=== PATIENT | female | born 1965 | race Caucasian/White ===

== ENCOUNTER 2020-05-11 15:27 | Observation (INO) | payer OTHER ==
[~2020-05-11] VITALS: Ht 154.9 cm; Wt 90.9 kg
--- NOTE | ~2020-05-11 | OP ---
PATIENT NAME: ELMER KAMINSKI MEDICAL RECORD: [id number] :69 LOCATION:[facility] ADMISSION DATE:05/11/20 SURGEON: RIAN LINDSAY MD DATE OF OPERATION: 05/12/2020 PREOPERATIVE DIAGNOSES: 1. Symptomatic gallstones. 2. Fatty liver disease. POSTOPERATIVE DIAGNOSES: 1. Symptomatic gallstones. 2. Fatty liver disease with hepatomegaly. PROCEDURE: 1. Laparoscopic cholecystectomy. 2. Intraoperative cholangiography without immediate surgeon interpretation. 3. A 14-gauge core needle liver biopsy. SURGEON: Rian Lindsay MD INSTRUCTIONAL SUPPORT TECHNICIAN: Danial Lassiter formerly [facility]. BLOOD LOSS: 30 cc. ANESTHESIA: General. COMPLICATIONS: None. The risks, possible complications and alternatives to the procedure were explained to the patient. She elects to proceed. The discussion specifically included, but was not limited to, bleeding requiring emergency reoperation, infection, intestinal injury, common bile duct injury. OPERATIVE COURSE: The patient was conveyed to the operating room electively on 05/12/2020. General anesthesia was induced by the anesthesia staff. The abdomen was sterilely prepped and draped. A transverse incision was accomplished inferior to the umbilicus. Sharp dissection was carried down to the level of the anterior fascia. Stay sutures of 0 Vicryl were placed on either side of the midline. The midline fascia was then incised. The peritoneal cavity was entered bluntly. A Clive trocar was introduced. CO2 insufflation was begun. Once a sufficient pneumoperitoneum had been achieved, 3 more trocars were inserted. They were inserted in the upper abdomen. An abdominal survey was undertaken. Under laparoscopic guidance, I percutaneously accessed the right upper quadrant utilizing a 14-gauge core biopsy device. Cores were obtained of the liver due to fatty liver disease as well as hepatomegaly. Utilizing a core biopsy device, several cores were obtained and the biopsy site was made hemostatic with electrocautery. The gallbladder was small. It was full of stones. It did not appear acutely inflamed. It was grasped and retracted inferiorly. I advanced the cholangiogram trocar, punctured the fundus of the gallbladder, aspirated bile and then injected dye. Under real time fluoroscopy, static images were obtained OPERATIVE REPORT [id number] ELMER KAMINSKI of the biliary tract. I then aspirated bile and removed the cholangiogram trocar. The gallbladder was retracted cephalad. The infundibulum was grasped and retracted laterally. Blunt dissection was begun on the triangle of [place]. There were 2 cystic arteries, one anterior and one posterior. These were clipped multiply and divided between clips. I then dissected out the cystic duct. It was clipped multiply and divided between clips. The gallbladder was then excised from its bed in the liver. It was placed within a bag retrieval device and was withdrawn through the infraumbilical incision. A 12-mm trocar was replaced and the abdomen reinsufflated. I irrigated and aspirated in the right upper quadrant. There was no bleeding even at low pressure of 8. All the trocars were removed and the abdomen desufflated. The fascia inferior to the umbilicus was closed with interrupted horizontal mattress 0 Vicryl sutures. The skin at the umbilicus was closed with a running 4-0 Vicryl suture. The other skin incisions were closed with interrupted intracuticular 3-0 and 4-0 Vicryls. Benzoin and Steri-Strips were applied. The patient was then extubated and conveyed to post-anesthesia care unit where she was in stable condition. We were unable to find any family members. The patient can be dismissed home on [address]. I will see her in the office in 2-3 weeks. TRANSINT:[id number] Voice Confirmation ID: [id number] DOCUMENT ID: [id number] RIAN LINDSAY MD CC: MARI CHAU MD [id number] DICTATION DATE: 05/12/20 1242 BILL ADJUSTER: 05/12/20 1351 ADM IN [facility] [address] [place] [address]
[2020-05-11] MEDS ORDERED: ALBUTEROL SULF8.5 GM (15:35)
[2020-05-11 15:56] LABS: BASOPHILS 0.2 % (0-2); EOSINOPHILS 1.3 % (0-7); HEMATOCRIT 43.4 % (36.0-48.0); HEMOGLOBIN 14.4 g/dL (12-16); IMMATURE GRANULOCYTES 0.2 % (0-5); LYMPHOCYTES 22.2 % (15-50); MCH 28.9 pg (26.0-34.0); MCHC 33.2 g/dL (31.0-37.0); MCV 87.1 fL (80.0-100.0); MEAN PLATELET VOLUME 9.3 fL (7.4-10.4); MONOCYTES 7.5 % (2-11); NEUTROPHILS 68.6 % (40-80); PLATELET COUNT 371 10x3/uL (130-400); RBC 4.98 10x6/uL (4.00-5.40); WBC 15.5 10x3/uL (4.8-10.8)
[2020-05-11 16:00] VITALS: BP 118/93
[2020-05-11 16:08] LABS: CALC OSMOLALITY 277 mosm/kg (275-300); CALCIUM 10.7 mg/dL (8.5-10.1); CARBON DIOXIDE 27.5 mmol/L (21.0-32.0); CHLORIDE - SERUM 97 mmol/L (98-107); CREATININE - SERUM 1.1 mg/dL (0.6-1.3); GLUCOSE 123 mg/dL (74-106); POTASSIUM - SERUM 4.3 mmol/L (3.5-5.1); SODIUM 137 mmol/L (136-145); UREA NITROGEN 21 mg/dL (7-18); eGFR NON AFRICAN AMERICAN 55 mL/min (90-120)
[2020-05-11 16:16] LABS: BILIRUBIN NEGATIVE (NEGATIVE); KETONE NEGATIVE (NEGATIVE); NITRITE NEGATIVE (NEGATIVE); UROBILINOGEN NORMAL (NORMAL)
[2020-05-11 16:19] LABS: ALBUMIN 4.7 g/dL (3.4-5.0); ALKALINE PHOSPHATASE 97 U/L (30-120); ALT (SGPT) 41 U/L (10-68); AMYLASE - SERUM 36 U/L (25-115); BILIRUBIN - TOTAL 0.59 mg/dL (0.2-1.3); LIPASE 99 U/L (73-393)
[2020-05-11 16:33] LABS: TROPONIN-I < 0.017 ng/mL (0.000-0.060)
[2020-05-11 17:25] VITALS: BP 147/75
[2020-05-11 18:00] VITALS: BP 135/67
--- NOTE | 2020-05-11 18:00 | NUR ---
COVID-19 SWAB COLLECTED FOR ADMISSION AND SENT TO THE LAB.
[2020-05-11 20:00] VITALS: BP 147/71
[2020-05-11 21:25] VITALS: BP 147/71; Ht 154.9 cm; Wt 90.9 kg
[2020-05-12] VITALS: BP 91/45
[2020-05-12 04:00] VITALS: BP 120/69
[2020-05-12 05:17] LABS: BASOPHILS 0.2 % (0-2); EOSINOPHILS 2.9 % (0-7); HEMATOCRIT 37.1 % (36.0-48.0); IMMATURE GRANULOCYTES 0.1 % (0-5); LYMPHOCYTES 27.5 % (15-50); MCH 28.6 pg (26.0-34.0); MCHC 32.3 g/dL (31.0-37.0); MCV 88.3 fL (80.0-100.0); MEAN PLATELET VOLUME 9.2 fL (7.4-10.4); MONOCYTES 9.3 % (2-11); RDW 13.3 % (11.5-14.5)
[2020-05-12 05:20] LABS: INR 1.02 (0.85-1.17); PROTIME 13.3 SECONDS (11.6-15.0)
[2020-05-12 05:21] LABS: APTT 27.4 SECONDS (22.8-39.4)
[2020-05-12 05:23] LABS: PLATELET COUNT 282 10x3/uL (130-400); WBC 9.2 10x3/uL (4.8-10.8)
[2020-05-12 05:51] LABS: CALCIUM 8.2 mg/dL (8.5-10.1); CARBON DIOXIDE 28.9 mmol/L (21.0-32.0); CHOL - HDL RATIO 3.7 ratio (2.3-4.1); LDL-HDL RATIO 2.3 ratio (1.5-3.5); MAGNESIUM - SERUM 1.9 mg/dL (1.8-2.4); PHOSPHOROUS 3.7 mg/dL (2.5-4.9); POTASSIUM - SERUM 3.9 mmol/L (3.5-5.1); THYROID STIMULATING HORMONE 4.49 uIU/mL (0.36-3.74)
--- NOTE | 2020-05-12 06:55 | NUR ---
A&O RESTING IN BED WITH EYES OPEN. NO C/O PAIN. NO S/S OF ACUTE DISTRESS NOTED. SCHEDULED FOR A LAP RICARDO TODAY. IV TO RIGHT AC, NS INFUSING @ 75ML/HR. SITE PATENT WITHOUT REDNESS OR SWELLING. SPOUSE AT BEDSIDE. DENIES ANY NEEDS AT THIS TIME. CALL LIGHT IN REACH. WILL CONTINUE TO MONITOR.
[2020-05-12 09:18] VITALS: BP 109/63
--- NOTE | 2020-05-12 12:40 | NUR ---
I have reviewed this patient and I concur with the Shift Assessment completed by the Licensed Practical Nurse today this shift.
[2020-05-12 14:13] VITALS: BP 130/81
[2020-05-12] MEDS ORDERED: HYDROCODON-ACE1 EAC7 PO (15:25)
[2020-05-12] MEDS ORDERED: COLACE100 MG PO (15:26)
--- NOTE | 2020-05-12 17:19 | NUR ---
DISCHARGED PATIENT HOME WITH SPOUSE VIA WHEELCHAIR. DISCONTINUED IV, CATHETER TIP INTACT. WENT OVER DISCHARGE INSTRUCTIONS WITH PATIENT AND SPOUSE, BOTH VERBALIZED UNDERSTANDING. SENT WRITTEN SCRIPTS HOME WITH PATIENT. DENIES ANYTHING FURTHER.
[2020-05-12 18:01] VITALS: BP 143/84
== END 2020-05-12 18:05 | disposition home or self-care (01) ==
LOC: D.ER 15:27 → D.MS 18:02 → D.EDHOLD 18:02 → D.MS 18:03 → OBSVTIME 05-12 18:03 → D.MS 05-12 18:05
PROVIDERS: Emergency Medicine; ADMIT Family Medicine; ATTEND Family Medicine
DX: K80.80 Other cholelithiasis without obstruction (principal); R10.11 Right upper quadrant pain; K76.0 Fatty (change of) liver, not elsewhere classified; R16.0 Hepatomegaly, not elsewhere classified; D72.829 Elevated white blood cell count, unspecified; K80.20 Calculus of gallbladder without cholecystitis without obstruction; J45.909 Unspecified asthma, uncomplicated